=== PATIENT | female | born 1960 | race Caucasian/White ===

== ENCOUNTER 2017-01-24 11:17 | Emergency (ER) | payer SELFPAY ==
[~2017-01-24] VITALS: Ht 152.4 cm; Wt 64.2 kg
[~2017-01-24 11:17] MED LIST: AMLO10 PO; DICL25 PO; METO50TA PO; SOMA350T PO; ULTR50TA PO
[2017-01-24 11:24] VITALS: BP 141/75; PULSE 83; RESP 18; TEMP 98.6; O2SAT 96
[2017-01-24] MEDS ORDERED: AMLO10 PO (11:47)
[2017-01-24] MEDS ORDERED: METO50TA PO (11:47)
--- NOTE | 2017-01-24 11:51 | PD ---
HPI Chief Complaint: Complaint Time Seen by Provider: 11:39 Travel History International Travel<30 days: No Contact w/Intl Traveler<30days: No Traveled to known affect area: No History of Present Illness HPI 56yo F with PMH of nephrolithiasis and chronic back pain presents to the ED with c/o right sided flank pain that radiates down to suprapubic region. Spasm like and sharp. Feels pressure in bladder. +Nausea. Feels like her kidney stone. Denies any fever, vomiting, dysuria, hematuria, vaginal bleeding or discharge, trauma, focal weakness or numbness. Took advil and tylenol with little relieve. PFSH Past Medical History Hx Anticoagulant Therapy: No Arthritis: Yes Asthma: Yes Cancer: No Cardiovascular Problems: Yes (HTN) COPD: Yes Diabetes: Yes (BORDERLINE) Diminished Hearing: Yes ([place]) Diverticulitis: Yes Endocrine: No Gastrointestinal Disorders: Yes (DIVERTICULITIS,) GERD: Yes Genitourinary: Yes (RECURRENT KIDNEY STONES, LARGE 2.5 CM R KIDNEY) Hepatitis: No Hiatal Hernia: Yes Hypertension: Yes Immune Disorder: No Kidney Stones: Yes Musculoskeletal: Yes ( OSTEOPENIA, ARTHRITIS IN BACK AND NECK) Neurologic: No Psychiatric: No Reproductive: No Respiratory: Yes (ASTHMA, SMOKES 1 PPD) Immunizations Current: Yes Thyroid Disease: No Ulcer: Yes (STOMACH) Menopausal: Yes Past Surgical History Abdominal Surgery: Yes (RIGHT INGUINAL HERNIA REPAIR IN 1996) AICD: No Body Medical Devices: LEFT URETERAL STENT Genitourinary Surgery: Yes (ESWL, TAHIR. URETERAL STENTS, KIDNEY STONE REMOVAL 2010, 2014) Joint Replacement: No Pacemaker: No Other Surgery: Yes (REMOVAL OF WARTS R FOOT) Social History Alcohol Use: No Tobacco Use: Yes (1 PPD) Substance Use: No Allergies-Medications (Allergen,Severity, Reaction): Coded Allergies: Diclofenac (Verified Allergy, Mild, UNKNOWN, 01/24/17) Ibuprofen (Verified Allergy, Mild, Tachycardia, 01/24/17) Reported Meds & Prescriptions Reported Meds & Active Scripts Active Reported Metoprolol Tartrate 50 Mg Tab 50 Mg PO BID Norvasc (Amlodipine Besylate) 10 Mg Tab 10 Mg PO DAILY Review of Systems Except as stated in HPI: all other systems reviewed are Neg Physical Exam Narrative GENERAL: 56yo F in mild distress. SKIN: Focused skin assessment warm/dry. HEAD: Atraumatic. Normocephalic. CARDIOVASCULAR: Regular rate and rhythm. No murmur appreciated. RESPIRATORY: No accessory muscle use. Clear to auscultation. Breath sounds equal bilaterally. GASTROINTESTINAL: Abdomen soft, +TTP suprapubic region > Right upper and lower > epigastric. No rebound tenderness or guarding. BACK: No midline ttp. No CVA tenderness bilaterally. MUSCULOSKELETAL: No obvious deformities. No clubbing. No cyanosis. No edema. NEUROLOGICAL: Awake and alert. No obvious cranial nerve deficits. Motor grossly within normal limits. Normal speech. Sensation equal in all extremities. PSYCHIATRIC: Appropriate mood and affect; insight and judgment normal. Data Data Last Documented VS Vital Signs Date Time Temp Pulse Resp B/P Pulse Ox O2 Delivery O2 Flow Rate FiO2 01/24/17 12:56 16 01/24/17 12:00 98 Room Air 01/24/17 11:24 98.6 83 141/75 Orders Complete Blood Count With Diff (01/24/17 11:46) Comprehensive Metabolic Panel (01/24/17 11:46) Lipase (01/24/17 11:46) Prothrombin Time / Inr (Pt) (01/24/17 11:46) Act Partial Throm Time (Ptt) (01/24/17 11:46) Urinalysis - C+S If Indicated (01/24/17 11:46) Ct Abd/Pel W Iv Contrast(Rout) (01/24/17 11:46) Iv Access Insert/Monitor (01/24/17 11:46) Ecg Monitoring (01/24/17 11:46) Oximetry (01/24/17 11:46) Electrocardiogram (01/24/17 11:46) Morphine Inj (Morphine Inj) (01/24/17 12:00) Ondansetron Inj (Zofran Inj) (01/24/17 12:30) Iohexol 350 Inj (Omnipaque 350 Inj) (01/24/17 13:06) Labs Laboratory Tests Test 01/24/17 01/24/17 12:00 12:05 Urine Collection Type CLEAN CATCH Urine Color YELLOW Urine Turbidity CLEAR Urine pH 5.5 Urine Specific [place] 1.020 Urine Protein NEG mg/dL Urine Glucose (UA) NEG mg/dL Urine Ketones NEG mg/dL Urine Occult Blood NEG Urine Nitrite NEG Urine Bilirubin NEG Urine Leukocyte Esterase NEG Urine RBC 0-3 /hpf Urine WBC 0-2 /hpf Urine Squamous Epithelial > 8 /hpf Cells Microscopic Urinalysis Comment CULT NOT INDICATED Urine Collection Time 12:00 White Blood Count 8.7 TH/MM3 Red Blood Count 4.56 MIL/MM3 Hemoglobin 14.1 GM/DL Hematocrit 41.6 % Mean Corpuscular Volume 91.3 FL Mean Corpuscular Hemoglobin 31.0 PG Mean Corpuscular Hemoglobin 33.9 % Concent Red Cell Distribution Width 12.1 % Platelet Count 352 TH/MM3 Mean Platelet Volume 6.8 FL Neutrophils (%) (Auto) 59.9 % Lymphocytes (%) (Auto) 32.7 % Monocytes (%) (Auto) 4.9 % Eosinophils (%) (Auto) 0.4 % Basophils (%) (Auto) 2.1 % Neutrophils # (Auto) 5.2 TH/MM3 Lymphocytes # (Auto) 2.9 TH/MM3 Monocytes # (Auto) 0.4 TH/MM3 Eosinophils # (Auto) 0.0 TH/MM3 Basophils # (Auto) 0.2 TH/MM3 CBC Comment DIFF FINAL Differential Comment Prothrombin Time 10.7 SEC Prothromb Time International 1.0 RATIO Ratio Activated Partial 25.7 SEC Thromboplast Time Sodium Level 141 MEQ/L Potassium Level 4.0 MEQ/L Chloride Level 104 MEQ/L Carbon Dioxide Level 29.4 MEQ/L Anion Gap 8 MEQ/L Blood Urea Nitrogen 16 MG/DL Creatinine 0.72 MG/DL Estimat Glomerular Filtration 84 ML/MIN Rate Random Glucose 97 MG/DL Calcium Level 8.9 MG/DL Total Bilirubin 0.3 MG/DL Aspartate Amino Transf 21 U/L (AST/SGOT) Alanine Aminotransferase 35 U/L (ALT/SGPT) Alkaline Phosphatase 139 U/L Total Protein 7.7 GM/DL Albumin 3.6 GM/DL Lipase 197 U/L [facility] Medical Decision Making Medical Screen Exam Complete: Yes Emergency Medical Condition: Yes Interpretation(s) EKG: NSR 86bpm. Normal axis. TWI V2. No ST segment elevation or depression. Laboratory Tests Test 01/24/17 01/24/17 12:00 12:05 Urine Collection Type CLEAN CATCH Urine Color YELLOW (YELLW/STRAW) Urine Turbidity CLEAR (CLEAR) Urine pH 5.5 (5.0-8.5) Urine Specific [place] 1.020 (1.002-1.035) Urine Protein NEG mg/dL (NEG-TRACE) Urine Glucose (UA) NEG mg/dL (NEG) Urine Ketones NEG mg/dL (NEG) Urine Occult Blood NEG (NEG) Urine Nitrite NEG (NEG) Urine Bilirubin NEG (NEG) Urine Leukocyte Esterase NEG (NEG) Urine RBC 0-3 /hpf (0-3) Urine WBC 0-2 /hpf (0-5) Urine Squamous Epithelial > 8 /hpf (0-5) Cells Microscopic Urinalysis Comment CULT NOT INDICATED Urine Collection Time 12:00 White Blood Count 8.7 TH/MM3 (4.0-11.0) Red Blood Count 4.56 MIL/MM3 (4.00-5.30) Hemoglobin 14.1 GM/DL (11.6-15.3) Hematocrit 41.6 % (35.0-46.0) Mean Corpuscular Volume 91.3 FL (80.0-100.0) Mean Corpuscular Hemoglobin 31.0 PG (27.0-34.0) Mean Corpuscular Hemoglobin 33.9 % Concent (32.0-36.0) Red Cell Distribution Width 12.1 % (11.6-17.2) Platelet Count 352 TH/MM3 (150-450) Mean Platelet Volume 6.8 FL (7.0-11.0) Neutrophils (%) (Auto) 59.9 % (16.0-70.0) Lymphocytes (%) (Auto) 32.7 % (9.0-44.0) Monocytes (%) (Auto) 4.9 % (0.0-8.0) Eosinophils (%) (Auto) 0.4 % (0.0-4.0) Basophils (%) (Auto) 2.1 % (0.0-2.0) Neutrophils # (Auto) 5.2 TH/MM3 (1.8-7.7) Lymphocytes # (Auto) 2.9 TH/MM3 (1.0-4.8) Monocytes # (Auto) 0.4 TH/MM3 (0-0.9) Eosinophils # (Auto) 0.0 TH/MM3 (0-0.4) Basophils # (Auto) 0.2 TH/MM3 (0-0.2) CBC Comment DIFF FINAL Differential Comment Prothrombin Time 10.7 SEC (9.8-11.6) Prothromb Time International 1.0 RATIO Ratio Activated Partial 25.7 SEC Thromboplast Time (24.3-30.1) Sodium Level 141 MEQ/L (136-145) Potassium Level 4.0 MEQ/L (3.5-5.1) Chloride Level 104 MEQ/L (98-107) Carbon Dioxide Level 29.4 MEQ/L (21.0-32.0) Anion Gap 8 MEQ/L (5-15) Blood Urea Nitrogen 16 MG/DL (7-18) Creatinine 0.72 MG/DL (0.50-1.00) Estimat Glomerular Filtration 84 ML/MIN (>89) Rate Random Glucose 97 MG/DL (74-106) Calcium Level 8.9 MG/DL (8.5-10.1) Total Bilirubin 0.3 MG/DL (0.2-1.0) Aspartate Amino Transf 21 U/L (15-37) (AST/SGOT) Alanine Aminotransferase 35 U/L (10-53) (ALT/SGPT) Alkaline Phosphatase 139 U/L (45-117) Total Protein 7.7 GM/DL (6.4-8.2) Albumin 3.6 GM/DL (3.4-5.0) Lipase 197 U/L (73-393) Last Impressions Abdomen/Pelvis CT 01/24/17 1146 Signed Impressions: Service Date/Time: Tuesday, January 24, 2017 12:57 - CONCLUSION: 1. Mild to moderate diverticulosis with no definite focal inflammatory change. 2. Mild scarring involving the right posterior kidney. The previously noted small bilateral renal calculi are no longer visualized. Bharathi Sanchez MD Differential Diagnosis Nephrolithiasis vs. pyelonephritis vs. colitis Narrative Course 56yo F with abdominal pain and urinary complaint. Pt has history of nephrolithiasis. Pt is well appearing. Labs reviewed, no leukocytosis. CMP unremarkable. Lipase normal. Alk phos mildly elevated at 139. UA showed negative leukocyte and nitrite. Pt given zofran, morphine for pain. CT a/p showed mild to moderate diverticulosis with no focal inflammatory change. Mild scarring involving right posterior kidney. Informed pt of this and she said she knew about it. Pt reevaluated at bedside and states pain has improved. Tolerating PO. Abdomen soft, NT/ND. Return precautions given. Diagnosis Primary Impression: Abdominal pain Qualified Code: R10.84 - Generalized abdominal pain Patient Instructions: General Instructions, Narcotic given in the ED Departure Forms: Tests/Procedures Additional Instructions: Please follow up with your PMD in 3-7 days. Return to the ED if symptoms worsen. Med/Other Pt SpecificInfo: Prescription(s) given Scripts Acetaminophen (Acetaminophen Extra Strength)500 Mg Hxf038 Mg PO Q6H PRN (PAIN SCALE 1 TO 4) #20 TAB Ref 0 Prov:Veronica Valle DO 01/24/17 Disposition: 01 DISCHARGE HOME Condition: Stable Veronica Valle DO Jan 24, 2017 11:51
[2017-01-24 12:00] VITALS: O2SAT 98
[2017-01-24] MEDS ORDERED: MORPHINE SULFATE 4 MG/ML INJ IV PUSH ONE (12:00)
[2017-01-24 12:13] LABS: AUTOMATED NEUTROPHIL # 5.2 TH/MM3 (1.8-7.7); BASOPHIL # 0.2 TH/MM3 (0-0.2); BASOPHIL % 2.1 % (0.0-2.0); EOSINOPHIL % 0.4 % (0.0-4.0); HEMATOCRIT 41.6 % (35.0-46.0); HEMO FLAGS DIFF FINAL; LYMPH % 32.7 % (9.0-44.0); LYMPHOCYTE # 2.9 TH/MM3 (1.0-4.8); MEAN CELL VOLUME 91.3 FL (80.0-100.0); MEAN CORPUSCULAR HGB CONC 33.9 % (32.0-36.0); MONO % 4.9 % (0.0-8.0); NEUT % 59.9 % (16.0-70.0); PLATELET COUNT 352 TH/MM3 (150-450); RED BLOOD COUNT 4.56 MIL/MM3 (4.00-5.30); RED CELL DISTRIBUTION WIDTH 12.1 % (11.6-17.2); WHITE BLOOD COUNT 8.7 TH/MM3 (4.0-11.0)
[2017-01-24 12:14] LABS: BLOOD, URINE NEG (NEG); GLUCOSE,URINE NEG (NEG); KETONE, URINE NEG (NEG); NITRITE,URINE NEG (NEG); PH, URINE 5.5 (5.0-8.5)
[2017-01-24 12:21] LABS: CHLORIDE 104 MEQ/L (98-107); SODIUM (NA) 141 MEQ/L (136-145)
[2017-01-24 12:25] LABS: ANION GAP 8 MEQ/L (5-15); BICARBONATE 29.4 MEQ/L (21.0-32.0); BLOOD UREA NITROGEN 16 MG/DL (7-18)
[2017-01-24 12:26] LABS: APTT (PATIENT) 25.7 SEC (24.3-30.1); PROTHROMBIN TIME - PATIENT 10.7 SEC (9.8-11.6)
[2017-01-24 12:28] LABS: ALT (GPT) 35 U/L (10-53); AST (GOT) 21 U/L (15-37); GLOMERULAR FILTRATION RATE 84 ML/MIN (>89)
[2017-01-24 12:29] LABS: TOTAL BILIRUBIN ADULT 0.3 MG/DL (0.2-1.0)
[2017-01-24] MEDS ORDERED: ONDANSETRON HCL 4 MG/2 ML VIAL IV PUSH ONE (12:30)
[2017-01-24 12:31] LABS: ALKALINE PHOSPHATASE 139 U/L (45-117)
[2017-01-24 12:45] LABS: METHOD OF COLLECTION CLEAN CATCH; RBC, URINE 0-3 /hpf (0-3); SQUAMOUS EPITHELIAL CELL URINE > 8 /hpf (0-5); URINE COLOR YELLOW (YELLW/STRAW); WBC, URINE 0-2 /hpf (0-5)
[2017-01-24 12:46] LABS: COMMENT (UR) CULT NOT INDICATED; CULTURE IF INDICATED CULT NOT INDICATED
[2017-01-24] MEDS ORDERED: IOHEXOL 350 MG/ML 10 ML VIAL (for RAD DIAG) IV ONE (13:06)
--- NOTE | 2017-01-24 13:21 | RADHPO ---
EXAM DATE/TIME: 01/24/2017 12:57 [facility] COMPARISON: CT ABDOMEN & PELVIS W/O CONTRAST, June 30, 2015, 11:43. INDICATIONS : Diffuse abdominal pain predominately on right side. IV CONTRAST: 95 cc Omnipaque 350 (iohexol) IV ORAL CONTRAST: No oral contrast ingested. RADIATION DOSE: 14.49 CTDIvol (mGy) MEDICAL HISTORY : Hypertension. Diverticulitis. Renal calculi. SURGICAL HISTORY : Inguinal hernia repair. ENCOUNTER: Initial ACUITY: 4 - 6 days PAIN SCALE: 5/10 LOCATION: all quadrants TECHNIQUE: Volumetric scanning of the abdomen and pelvis was performed. Using automated exposure control and ad justment of the mA and/or kV according to patient size, radiation dose was kept as low as reasonably achievable to obtain optimal diagnostic quality images. FINDINGS: LOWER LUNGS: The visualized lower lungs are clear. LIVER: Homogeneous density without lesion. There is no dilation of the biliary tree. No calcified gallston es. SPLEEN: Normal size without lesion. PANCREAS: Within normal limits. KIDNEYS: Normal in size and shape. There is no solid mass, stone or hydronephrosis. The previously noted smal l bilateral renal calculi are no longer visualized. There is mild focal scarring involving the right posterior kidney. There is small simple appearing cysts in both kidneys. ADRENAL GLANDS: Within normal limits. VASCULAR: There is no aortic aneurysm. BOWEL/MESENTERY: The stomach, small bowel, and colon demonstrate no acute abnormality. Scattered diverticuli are prese nt greatest in the sigmoid colon. There is no free intraperitoneal air or fluid. ABDOMINAL WALL: Within normal limits. RETROPERITONEUM: There is no lymphadenopathy. BLADDER: No wall thickening or mass. REPRODUCTIVE: Within normal limits. INGUINAL: There is no lymphadenopathy or hernia. MUSCULOSKELETAL: Within normal limits for patient age. CONCLUSION: 1. Mild to moderate diverticulosis with no definite focal inflammatory change. 2. Mild scarring involving the right posterior kidney. The previously noted small bilateral renal татьяна culi are no longer visualized. Bharathi Sanchez MD on January 24, 2017 at 13:16 Board Certified Radiologist. This report was verified electronically.
[2017-01-24] MEDS ORDERED: ACET500T36 PO (13:35)
[2017-01-24 14:04] VITALS: BP 117/68; PULSE 81; RESP 16
--- NOTE | 2017-01-25 14:42 | EKG ---
Date Performed: 01/24/2017 Time Performed: 11:50:54 PTAGE: 56 years EKG: Sinus rhythm Compared to the previous tracing the patient is no longer bradycardic Normal ECG PREVIOUS TRACING : 05/14/2015 04.10 DOCTOR: Oliva Khanna Interpretating Date/Time 01/25/2017 14:41:40
== END 2017-01-24 14:07 | disposition home or self-care (01) ==
LOC: PHED 11:17
DX: R10.33 Periumbilical pain (principal); I10 Essential (primary) hypertension; J44.9 Chronic obstructive pulmonary disease, unspecified; R73.03 Prediabetes; F17.210 Nicotine dependence, cigarettes, uncomplicated
CPT/HCPCS: 74177; 80053; 81001; 83690; 85025; 85610; 85730; 93005; 96374; 96375; 99284; J2270; J2405; Q9967

== ENCOUNTER 2017-11-18 05:00 | Emergency (ER) | payer OTHER ==
[~2017-11-18] VITALS: Ht 152.4 cm; Wt 67.0 kg
[~2017-11-18 05:00] MED LIST changes: -DICL25 PO; +MAPA500T13 PO; -SOMA350T PO; -ULTR50TA PO
[2017-11-18 05:04] VITALS: BP 167/72; PULSE 87; RESP 18; TEMP 98.6; O2SAT 95
--- NOTE | 2017-11-18 05:53 | PD ---
HPI Chief Complaint: Cold / Flu Symptoms Time Seen by Provider: 05:41 Travel History International Travel<30 days: No Contact w/Intl Traveler<30days: No Traveled to known affect area: No History of Present Illness HPI 57 y/o female presents with almost 4 day history of cough, congestion, body aches and right ear pain. She states her son had similar symptoms before she got hers. She states that she recently got the flu shot. She denies any other specific complaints. She states the main thing that is bothering her is her ear. Quality pain sharp. Severity is severe per patient. She denies specific modifying factors. PFSH Past Medical History Hx Anticoagulant Therapy: No Arthritis: Yes Asthma: Yes Cancer: No COPD: Yes Patient Takes Glucophage: No Diminished Hearing: Yes ([place]) Diverticulitis: Yes Endocrine: No GERD: Yes Hepatitis: No Hiatal Hernia: Yes Hypertension: Yes Immune Disorder: No Kidney Stones: Yes Musculoskeletal: Yes ( OSTEOPENIA, ARTHRITIS IN BACK AND NECK) Neurologic: No Psychiatric: No Reproductive: No Immunizations Current: Yes Thyroid Disease: No Ulcer: Yes (STOMACH) Influenza Vaccination: Yes Menopausal: Yes Past Surgical History Abdominal Surgery: Yes (RIGHT INGUINAL HERNIA REPAIR IN 1996) AICD: No Body Medical Devices: LEFT URETERAL STENT Genitourinary Surgery: Yes (ESWL, TAHIR. URETERAL STENTS, KIDNEY STONE REMOVAL 2010, 2014) Joint Replacement: No Pacemaker: No Other Surgery: Yes (REMOVAL OF WARTS R FOOT) Social History Alcohol Use: No Tobacco Use: Yes (1/2ppd) Substance Use: No Allergies-Medications (Allergen,Severity, Reaction): Coded Allergies: diclofenac (Unverified Allergy, Mild, UNKNOWN, 11/18/17) ibuprofen (Unverified Allergy, Mild, Tachycardia, 11/18/17) Reported Meds & Prescriptions Reported Meds & Active Scripts Active Metoprolol Tartrate 50 Mg Tab 50 Mg PO BID Norvasc (Amlodipine Besylate) 10 Mg Tab 10 Mg PO DAILY Reported Mapap Extra Strength (Acetaminophen) 500 Mg Tab 500 Mg PO Q4-6H PRN Review of Systems Except as stated in HPI: all other systems reviewed are Neg Physical Exam Narrative General: No apparent distress, well appearing ENT: Posterior oropharyngx clear without exudate or erythema, external auditory canals are normal. Bilateral TM clear, no mastoid tenderness, rhinorrhea noted Neck: Neck is supple, no meningeal signs, trachea is midline Cardiovascular: Regular rate and rhythm Lungs: No increased respiratory effort noted, CTA bilaterally Abdomen: Soft, NT, ND, no rebound or guarding Back: No step-offs, midline spine nontender, no CVA tenderness Extremities: No edema, no pain with rom of all joints Neuro: Awake, motor and sensation grossly intact, normal speech Data Data Last Documented VS Vital Signs Date Time Temp Pulse Resp B/P (MAP) Pulse Ox O2 Delivery O2 Flow Rate FiO2 11/18/17 06:31 11/18/17 05:04 98.6 87 18 95 Orders Orders Chest, Pa & Lat (11/18/17 ) Ed Discharge Order (11/18/17 06:19) [facility] Medical Decision Making Medical Screen Exam Complete: Yes Emergency Medical Condition: Yes Medical Record Reviewed: Yes (Past history confirmed) Interpretation(s) cxr no acute Differential Diagnosis Pneumonia, URI, allergies Narrative Course We will check chest x-ray and reevaluate. Patient agrees to not testing for flu as given duration of symptoms Tamiflu would not be recommended. cxr no acute, Patient denies any new complaints, all questions answered. Patient knows that follow up is incumbent on them and to return to the emergency room immediately if new or worsening symptoms develop. Patient given strict return precautions, vitals reviewed and are normal, agrees to further workup as an outpatient. Diagnosis Primary Impression: Upper respiratory infection Qualified Codes: J06.9 - Acute upper respiratory infection, unspecified Patient Instructions: General Instructions Additional Instructions: alternate tylenol and motrin, return as needed, follow with primary monday Med/Other Pt SpecificInfo: No Change to Meds Disposition: 01 DISCHARGE HOME Condition: Stable Joyce Benjamin MD Nov 18, 2017 05:53
--- NOTE | 2017-11-18 06:17 | RADRPT ---
EXAM DATE/TIME: 11/18/2017 05:58 [facility] COMPARISON: No previous studies available for comparison. INDICATIONS : Cough and Dizziness MEDICAL HISTORY : Diverticulosis. Diabetes mellitus type II. Hypertension. Ureteral Stent, COPD SURGICAL HISTORY : Hernia Repair ENCOUNTER: Initial ACUITY: 3 days PAIN SCORE: 7/10 LOCATION: Bilateral chest FINDINGS: The lungs are clear without infiltrate, nodule, or mass. There is no appreciable pleural effusion fo r technique. Heart and mediastinum are unremarkable. CONCLUSION: No acute cardiopulmonary disease. Anjali Downey MD on November 18, 2017 at 6:15 Board Certified Radiologist. This report was verified electronically.
== END 2017-11-18 06:31 | disposition home or self-care (01) ==
LOC: NEPC 05:00
DX: J06.9 Acute upper respiratory infection, unspecified (principal); H92.01 Otalgia, right ear; M19.90 Unspecified osteoarthritis, unspecified site; J45.909 Unspecified asthma, uncomplicated; J44.9 Chronic obstructive pulmonary disease, unspecified; Z87.19 Personal history of other diseases of the digestive system; K21.9 Gastro-esophageal reflux disease without esophagitis; I10 Essential (primary) hypertension; F17.200 Nicotine dependence, unspecified, uncomplicated
CPT/HCPCS: 71046; 99283

== ENCOUNTER 2017-11-27 14:28 | Emergency (ER) | payer OTHER ==
[~2017-11-27] VITALS: Ht 152.4 cm; Wt 63.0 kg
[2017-11-27 14:30] VITALS: BP 172/77; PULSE 96; RESP 22; TEMP 98.8; O2SAT 92
[2017-11-27] MEDS ORDERED: methylPREDNISolone SOD SUCC 125 MG/2 ML VIAL IV PUSH ONE (15:15)
[2017-11-27] MEDS ORDERED: SODIUM CHLORIDE 0.9% FLUSH 10 ML FLUSH IVF PRN (15:15)
--- NOTE | 2017-11-27 15:21 | PD ---
HPI Chief Complaint: Respiratory Symptoms Time Seen by Provider: 14:45 Travel History International Travel<30 days: No Contact w/Intl Traveler<30days: No Traveled to known affect area: No History of Present Illness HPI This 57-year-old female is complaining of shortness of breath. She has been sick for a couple of weeks. She does smoke cigarettes. She has been having a cough productive of yellowish phlegm. She gets dyspnea with minimal exertion. She says she has not had symptoms like this before. Her son had the flu about 2 weeks ago but seemed to get better quickly. She got the flu but did not seem to get better. She feels weak all over. PFSH Past Medical History Hx Anticoagulant Therapy: No Arthritis: Yes Asthma: Yes Cancer: No Cardiovascular Problems: Yes (HTN ) COPD: Yes Diabetes: Yes (BORDERLINE) Patient Takes Glucophage: No Diminished Hearing: Yes ([place]) Diverticulitis: Yes Endocrine: No Gastrointestinal Disorders: Yes (DIVERTICULITIS,) GERD: Yes Genitourinary: Yes (RECURRENT KIDNEY STONES, LARGE 2.5 CM R KIDNEY) Hepatitis: No Hiatal Hernia: Yes Hypertension: Yes Immune Disorder: No Kidney Stones: Yes Musculoskeletal: Yes ( OSTEOPENIA, ARTHRITIS IN BACK AND NECK) Neurologic: No Psychiatric: No Reproductive: No Respiratory: Yes (COPD/asthma ) Immunizations Current: Yes Thyroid Disease: No Ulcer: Yes (STOMACH) Tetanus Vaccination: Unknown Influenza Vaccination: Yes ?: Not Menopausal: Yes Past Surgical History Abdominal Surgery: Yes (RIGHT INGUINAL HERNIA REPAIR IN 1996) AICD: No Body Medical Devices: LEFT URETERAL STENT Genitourinary Surgery: Yes (ESWL, TAHIR. URETERAL STENTS, KIDNEY STONE REMOVAL 2010, 2014) Joint Replacement: No Pacemaker: No Other Surgery: Yes (REMOVAL OF WARTS R FOOT) Social History Alcohol Use: No Tobacco Use: Yes (1/2ppd) Substance Use: No Allergies-Medications (Allergen,Severity, Reaction): Coded Allergies: diclofenac (Unverified Allergy, Mild, UNKNOWN, 11/27/17) ibuprofen (Unverified Allergy, Mild, Tachycardia, 11/27/17) Reported Meds & Prescriptions Reported Meds & Active Scripts Active Ventolin Hfa 18 GM Inh (Albuterol Sulfate) 90 Mcg/Act Aer 2 Puff INH Q4-6H PRN Prednisone 20 Mg Tab 20 Mg PO DIRECTED Take 60 MG daily x 4 days, then 40 MG x 4 days, then 20 MG daily x 4 days. Amoxicillin 500 Mg Tab 500 Mg PO TID 7 Days Metoprolol Tartrate 50 Mg Tab 50 Mg PO BID Norvasc (Amlodipine Besylate) 10 Mg Tab 10 Mg PO DAILY Review of Systems General / Constitutional: Positive: Chills, No: Fever Eyes: No: Diploplia, Blurred Vision HENT: No: Headaches, Vertigo Cardiovascular: No: Chest Pain or Discomfort, Palpitations Respiratory: Positive: Cough, Shortness of Breath Gastrointestinal: No: Vomiting, Diarrhea Genitourinary: No: Urgency, Frequency Musculoskeletal: No: Myalgias, Arthralgias Skin: No Rash Neurologic: No: Weakness, Dizziness Endocrine: No: Heat Intolerance Hematologic/Lymphatic: No: Easy Bruising Physical Exam Narrative GENERAL well-developed female SKIN: Focused skin assessment warm/dry. HEAD: Atraumatic. Normocephalic. EYES: Pupils equal and round. No scleral icterus. No injection or drainage. ENT: No nasal bleeding or discharge. Mucous membranes pink and moist. NECK: Trachea midline. No JVD. CARDIOVASCULAR: Regular rate and rhythm. No murmur appreciated. RESPIRATORY: No accessory muscle use. There are bilateral rhonchi and occasional wheezes GASTROINTESTINAL: Abdomen soft, non-tender, nondistended. Hepatic and splenic margins not palpable. MUSCULOSKELETAL: No obvious deformities. No clubbing. No cyanosis. No edema. NEUROLOGICAL: Awake and alert. No obvious cranial nerve deficits. Motor grossly within normal limits. Normal speech. PSYCHIATRIC: Appropriate mood and affect; insight and judgment normal. Data Data Last Documented VS Vital Signs Date Time Temp Pulse Resp B/P (MAP) Pulse Ox O2 Delivery O2 Flow Rate FiO2 11/27/17 14:30 98.8 96 22 172/77 (108) 92 Orders Orders Complete Blood Count With Diff (11/27/17 15:12) Basic Metabolic Panel (Bmp) (11/27/17 15:12) Iv Access Insert/Monitor (11/27/17 15:12) Oximetry (11/27/17 15:12) Oxygen Administration (11/27/17 15:12) Chest, Single Ap (11/27/17 15:12) Sodium Chloride 0.9% Flush (Ns Flush) (11/27/17 15:15) Methylprednisolone So Succ Inj (Solumedr (2/26/18 15:15) Albuterol-Ipratropium Neb (Duoneb Neb) (11/27/17 15:15) Labs Laboratory Tests Test 11/27/17 15:30 White Blood Count 7.1 TH/MM3 Red Blood Count 4.43 MIL/MM3 Hemoglobin 13.9 GM/DL Hematocrit 41.6 % Mean Corpuscular Volume 93.9 FL Mean Corpuscular Hemoglobin 31.3 PG Mean Corpuscular Hemoglobin Concent 33.3 % Red Cell Distribution Width 12.0 % Platelet Count 529 TH/MM3 Mean Platelet Volume 6.4 FL Neutrophils (%) (Auto) 61.8 % Lymphocytes (%) (Auto) 32.1 % Monocytes (%) (Auto) 4.7 % Eosinophils (%) (Auto) 0.3 % Basophils (%) (Auto) 1.1 % Neutrophils # (Auto) 4.4 TH/MM3 Lymphocytes # (Auto) 2.3 TH/MM3 Monocytes # (Auto) 0.3 TH/MM3 Eosinophils # (Auto) 0.0 TH/MM3 Basophils # (Auto) 0.1 TH/MM3 CBC Comment DIFF FINAL Differential Comment Blood Urea Nitrogen 9 MG/DL Creatinine 0.53 MG/DL Random Glucose 105 MG/DL Calcium Level 8.8 MG/DL Sodium Level 139 MEQ/L Potassium Level 4.3 MEQ/L Chloride Level 102 MEQ/L Carbon Dioxide Level 30.3 MEQ/L Anion Gap 7 MEQ/L Estimat Glomerular Filtration Rate 119 ML/MIN [facility] Medical Decision Making Medical Screen Exam Complete: Yes Emergency Medical Condition: Yes Medical Record Reviewed: Yes Differential Diagnosis Differential includes COPD exacerbation, pneumonia, CHF Narrative Course Chest x-ray is negative. Believe the patient is having a COPD exacerbation. She will be treated with amoxicillin and prednisone Diagnosis Primary Impression: COPD exacerbation Scripts Albuterol 18 GM Inh (Ventolin Hfa 18 GM Inh) 90 Mcg/Act Aer 2 PUFF INH Q4-6H Y for SHORTNESS OF BREATH, #1 INHALER 0 Refills Prov: Arnulfo Wright MD 11/27/17 Prednisone (Prednisone) 20 Mg Tab 20 MG PO DIRECTED, #24 TAB 0 Refills Take 60 MG daily x 4 days, then 40 MG x 4 days, then 20 MG daily x 4 days. Prov: Arnulfo Wright MD 11/27/17 Amoxicillin (Amoxicillin) 500 Mg Tab 500 MG PO TID for Infection for 7 Days, TAB 0 Refills Prov: Arnulfo Wright MD 11/27/17 Disposition: 01 DISCHARGE HOME Condition: Stable Arnulfo Wright MD Nov 27, 2017 15:21
[2017-11-27 15:44] LABS: AUTOMATED NEUTROPHIL # 4.4 TH/MM3 (1.8-7.7); BASOPHIL # 0.1 TH/MM3 (0-0.2); BASOPHIL % 1.1 % (0.0-2.0); EOSINOPHIL % 0.3 % (0.0-4.0); HEMATOCRIT 41.6 % (35.0-46.0); HEMOGLOBIN 13.9 GM/DL (11.6-15.3); LYMPH % 32.1 % (9.0-44.0); LYMPHOCYTE # 2.3 TH/MM3 (1.0-4.8); MEAN CELL VOLUME 93.9 FL (80.0-100.0); MEAN CORPUSCULAR HEMOGLOBIN 31.3 PG (27.0-34.0); MEAN CORPUSCULAR HGB CONC 33.3 % (32.0-36.0); MEAN PLATELET VOLUME 6.4 FL (7.0-11.0); MONO % 4.7 % (0.0-8.0); MONOCYTE # 0.3 TH/MM3 (0-0.9); NEUT % 61.8 % (16.0-70.0); PLATELET COUNT 529 TH/MM3 (150-450); RED BLOOD COUNT 4.43 MIL/MM3 (4.00-5.30); WHITE BLOOD COUNT 7.1 TH/MM3 (4.0-11.0)
--- NOTE | 2017-11-27 15:47 | RADRPT ---
EXAM DATE/TIME: 11/27/2017 15:25 [facility] COMPARISON: CHEST PA & LAT, November 18, 2017, 5:58. INDICATIONS : Shortness of breath. MEDICAL HISTORY : Chronic obstructive pulmonary disease. Diabetes mellitus type II. Hypertension. SURGICAL HISTORY : None. ENCOUNTER: Initial ACUITY: 1 day PAIN SCORE: 0/10 LOCATION: Bilateral chest FINDINGS: A single view of the chest demonstrates the lungs to be symmetrically aerated without evidence of mas s, infiltrate or effusion. The cardiomediastinal contours are unremarkable. Osseous structures are intact. CONCLUSION: No acute disease. Angel Nicholas MD on November 27, 2017 at 15:45 Board Certified Radiologist. This report was verified electronically.
[2017-11-27] MEDS ORDERED: VENTAER INH (15:54)
[2017-11-27] MEDS ORDERED: AMOX500T PO (15:54)
[2017-11-27] MEDS ORDERED: PRED20 PO (15:54)
[2017-11-27 15:56] LABS: CALCIUM 8.8 MG/DL (8.5-10.1)
[2017-11-27 15:57] LABS: BICARBONATE 30.3 MEQ/L (21.0-32.0)
[2017-11-27 16:00] LABS: CREATININE 0.53 MG/DL (0.50-1.00)
[2017-11-27] MEDS: RESP: ALBUTEROL 2.5 MG/IPRATROPIUM 0.5 MG NEB (SCH) INH (16:06)
== END 2017-11-27 17:30 | disposition home or self-care (01) ==
LOC: PHED 14:28
DX: J44.1 Chronic obstructive pulmonary disease with (acute) exacerbation (principal); I10 Essential (primary) hypertension; F17.210 Nicotine dependence, cigarettes, uncomplicated
CPT/HCPCS: 71045; 80048; 85025; 94640; 94664; 96374; 99284; J2930